=== PATIENT | female | born 2000 | race Asian ===

== ENCOUNTER 2023-12-29 10:34 | Outpatient (CLI) | payer BC | END 2023-12-29 18:27 | disposition home or self-care (01) | LOC: SNM 10:34 | PROVIDERS: ATTEND Surgery | DX: K81.1 Chronic cholecystitis (principal); R93.2 Abnormal findings on diagnostic imaging of liver and biliary tract; R10.13 Epigastric pain | CPT/HCPCS: 78227; A9537 ==